=== PATIENT | male | born 1965 | race Native Hawaiian/Other Pacific Islander ===

== ENCOUNTER 2018-10-31 14:45 | Observation (INO) | payer OTHER ==
[2018-10-31 14:51] VITALS: BMI 19.6
[2018-10-31 15:08] VITALS: RESP 18
--- NOTE | 2018-10-31 15:22 | ED PDOC ---
Arrival/HPI - General Chief Complaint: Shortness Of Breath Time Seen by Provider: 10/31/18 14:46 Historian: Patient - History of Present Illness Narrative History of Present Illness (Text): 10/31/18 15:13 53 year old male, with past medical history of diabetes, was referred to the ED from Dr. Chavez's office for evaluation epigastric pain and fullness. Patient presented to Dr. Chavez today for evaluation and had normal ekg. He was sent to the ED for blood work. He reports that for the past month he has been experiencing episodes of epigastric pain with a gassy feeling and feeling of fullness in his abdomen. Reports that this weekend he began having dyspnea on exertion and worsening epigastric pain. He reports he was also having dizziness with exertion. He is scheduled for EGD with Dr. Herrera. Patient states he had a cardiac stress test done in 2016, which was normal. Denies family history of sudden cardiac . Denies family hx of early cardiac . PMD: Dr. Chavez 10/31/18 17:21 Time/Duration: > month Symptom Onset: Gradual Symptom Course: Unchanged Activities at Onset: Light Context: Other (Referred by Dr. Chavez) Past Medical History - Provider Review Nursing Documentation Reviewed: Yes - Infectious Disease Hx of Infectious Diseases: None - Endocrine/Metabolic Hx Diabetes Mellitus Type 2: Yes - Psychiatric Hx Substance Use: No Family/Social History - Physician Review Nursing Documentation Reviewed: Yes Family/Social History: No Known Family HX Smoking Status: Never Smoked Hx Alcohol Use: No Hx Substance Use: No Allergies/Home Meds Allergies/Adverse Reactions: Allergies aspirin Allergy (Verified 10/31/18 14:51) RASH Home Medications: Home Meds Medication Instructions Recorded Confirmed metFORMIN [glucOPHAGE] 500 mg PO DAILY 10/31/18 10/31/18 Review of Systems - Review of Systems Constitutional: absent: Fevers Respiratory: SOB. absent: Cough Cardiovascular: Chest Pain, CUADRA. absent: Edema, Calf Pain Gastrointestinal: absent: Abdominal Pain, Constipation, Diarrhea, Nausea, Vomiting Genitourinary Male: absent: Dysuria, Hematuria Musculoskeletal: absent: Back Pain, Neck Pain Skin: absent: Rash Neurological: Dizziness. absent: Headache, Focal Weakness Endocrine: absent: Diaphoresis Psychiatric: absent: Anxiety Physical Exam Vital Signs Reviewed: Yes Vital Signs Temp Pulse Resp BP Pulse Ox 10/31/18 15:07 98.5 F 71 18 133/71 100 Temperature: Afebrile Blood Pressure: Normal Pulse: Regular Respiratory Rate: Normal Appearance: Positive for: Well-Appearing, Non-Toxic, Comfortable Pain Distress: None Mental Status: Positive for: Alert and Oriented X 3 - Systems Exam Head: Present: Atraumatic, Normocephalic Pupils: Present: PERRL Extroacular Muscles: Present: EOMI Conjunctiva: Present: Normal Neck: Present: Normal Range of Motion Respiratory/Chest: Present: Clear to Auscultation, Good Air Exchange. No: Respiratory Distress, Accessory Muscle Use Cardiovascular: Present: Regular Rate and Rhythm, Normal S1, S2. No: Murmurs Abdomen: No: Tenderness, Distention, Peritoneal Signs Back: Present: Normal Inspection Upper Extremity: Present: Normal Inspection. No: Cyanosis, Edema Lower Extremity: Present: Normal Inspection. No: Edema Neurological: Present: GCS=15, Speech Normal Skin: Present: Warm, Dry, Normal Color. No: Rashes Psychiatric: Present: Alert, Oriented x 3, Normal Insight, Normal Concentration Medical Decision Making ED Course and Treatment: 10/31/18 15:00 Impression: 53 year old male presents to the ED for evaluation of shortness of breath and generalized fatigue. Plan: -- EKG -- Labs -- CXR -- Reassess and disposition Prior Visits: Notes and results from previous visits were reviewed. Progress Notes: 10/31/18 16:22 EKG shows NSR at 68bpm with normal intervals and no ST changes. Cxray negative. Heart score:3. On reevaluation patient began complaining of palpitations and chest pain. Patient not given aspirin due to allergy. Accepted by Dr. Hope for observation. - RAD Interpretation Radiology Orders: 10/31/18 15:00 CHEST PORTABLE [RAD] Stat - Scribe Statement The provider has reviewed the documentation as recorded by the Scribe Hakeem Meza. All medical record entries made by the Scribe were at my direction and personally dictated by me. I have reviewed the chart and agree that the record accurately reflects my personal performance of the history, physical exam, medical decision making, and the department course for this patient. I have also personally directed, reviewed, and agree with the discharge instructions and disposition. Disposition/Present on Arrival - Present on Arrival Any Indicators Present on Arrival: No History of DVT/PE: No History of Uncontrolled Diabetes: No Urinary Catheter: No History of Decub. Ulcer: No History Surgical Site Infection Following: None - Disposition Have Diagnosis and Disposition been Completed?: Yes Diagnosis: Fatigue, Epigastric pain Disposition: HOSPITALIZED Disposition Time: 16:31 Patient Plan: Observation Patient Problems: Current Active Problems Problem Status Onset Fatigue Acute Epigastric pain Acute Condition: FAIR Additional Instructions: Follow-up with Dr. Veras within 2 days. Follow-up with Dr. Herrera as scheduled. Return to ED if condition worsens. Referrals: Koby Chavez MD [Primary Care Provider] - Follow up with primary Omid Piper MD [Staff Provider] - Follow up with primary Stephen Herrera MD [Staff Provider] - Follow up with primary Forms: [employer] ([employer])
[2018-10-31 15:50] LABS: BASO # 0.01 K/mm3 (0.0-2.0); BASO % 0.2 % (0.0-3.0); EOS % 0.3 % (1.5-5.0); HEMOGLOBIN 14.3 g/dL (14.0-18.0); LYMPH # 1.3 (1.2-3.4); LYMPH % 20.2 % (22.0-35.0); MEAN CELL VOLUME 82.9 fl (80.0-105.0); MEAN CORPUSCULAR HEMOGLOBIN 29.9 pg (25.0-35.0); MEAN PLATELET VOLUME 8.6 fl (7.0-11.0); MONO # 0.4 (0.1-0.6); MONO % 6.8 % (1.0-6.0); RBC 4.79 10^6/uL (3.5-6.1); RED CELL DISTRIBUTION WIDTH 12.3 % (11.5-14.5); WHITE BLOOD COUNT 6.3 10^3/uL (4.5-11.0)
[2018-10-31 16:06] LABS: ALB/GLOB RATIO 1.3 (1.1-1.8); ALBUMIN 4.4 g/dL (3.0-4.8); ALT/SGPT 13 U/L (7-56); AST/SGOT 30 U/L (17-59); BLOOD UREA NITROGEN 13 mg/dL (7-21); CALCIUM 9.3 mg/dL (8.4-10.5); GFR NON-AFRICAN AMERICAN > 60; LIPASE 89 U/L (23-300)
[2018-10-31 16:18] LABS: TROPONIN I < 0.01 ng/mL
[2018-10-31 16:19] LABS: B-TYPE NATRIURETIC PEPTIDE 46.5 pg/mL (0-450)
--- NOTE | 2018-10-31 16:30 | RAD ---
Date of service: 10/31/2018 HISTORY: chest pain COMPARISON: No prior. FINDINGS: LUNGS: No active pulmonary disease. PLEURA: No significant pleural effusion identified, no pneumothorax apparent. CARDIOVASCULAR: No aortic atherosclerotic calcification present. Normal cardiac size. No pulmonary vascular congestion. OSSEOUS STRUCTURES: No significant abnormalities. VISUALIZED UPPER ABDOMEN: Normal. OTHER FINDINGS: None. IMPRESSION: No active disease.
[2018-10-31] MEDS ORDERED: Alum-Mag Hydrox-Simethicone Susp (30 mL) PO STA (17:21)
--- NOTE | 2018-10-31 22:39 | CARD ---
APPROVED REPORT Date of service: 10/31/2018 EKG Measurement Heart [id number] <Conclusion> Poor data quality, interpretation may be adversely affected Normal sinus rhythm Normal ECG
[2018-10-31] MEDS: Insulin Reg-LOW-Coverage SC SCH (22:43)
[2018-11-01 05:50] VITALS: BP 123/75; TEMP 98.2; O2SAT 98
[2018-11-01] MEDS: Insulin Reg-LOW-Coverage SC SCH ×2 (08:30→12:13)
[2018-11-01 09:16] LABS: EOS % 0.7 % (1.5-5.0); HEMOGLOBIN 14.2 g/dL (14.0-18.0); LYMPH # 1.6 (1.2-3.4); MEAN CORPUSCULAR HEMOGLOBIN 29.2 pg (25.0-35.0); MEAN CORPUSCULAR HGB CONC 35.1 g/dl (31.0-37.0); MEAN PLATELET VOLUME 8.8 fl (7.0-11.0); MONO # 0.4 (0.1-0.6); RBC 4.87 10^6/uL (3.5-6.1); RED CELL DISTRIBUTION WIDTH 12.3 % (11.5-14.5)
[2018-11-01 09:29] LABS: ALB/GLOB RATIO 1.2 (1.1-1.8); ALBUMIN 4.2 g/dL (3.0-4.8); ALT/SGPT 16 U/L (7-56); AST/SGOT 28 U/L (17-59); BLOOD UREA NITROGEN 11 mg/dL (7-21); CALCIUM 9.4 mg/dL (8.4-10.5); GFR NON-AFRICAN AMERICAN > 60
--- NOTE | 2018-11-01 10:06 | CP.PCM.HP ---
<Barry Tello - Last Filed: 11/01/18 10:42> History of Present Illness - History of Present Illness History of Present Illness: Barry Tello- Internal Medicine Resident- H&P Note/Discharge Note on Behalf of Dr. Medeiros Subjective: CC: Abdominal pain/Chest Pain HPI: Patient is a 53 year old male with a past medical history of DM who was admitted for evaluation and treatment of abdominal pain and chest pain. States the abdominal pain started months ago without a specific provoking event. Pain is characterized as being a dull aching sensation and remains in the epigatric region. Admits to abdominal fullness and belching after eating. Denies associated nausea and vomiting. States chest pain/pressure occurred with belching. Admits to associated SOB with exertion. Abdominal pain, chest pain, and exertional SOB have resolved since onset. Admits to following up with Dr. Piper and Dr. Herrera on an outpatient basis. Denies acute overnight events. Offers no new complaints at this time. Denies headache, dizziness, fevers, chills, palpitations, nausea, vomiting, diarrhea, constipation, and urinary symptoms. 12 Point ROS Negative Except as indicated in the HPI PMH: DM PSHx: none FMHx: sister- pancreatic cancer SHx: social alcohol use, denies tobacco use and illicit drug use Allergies: aspirin Physical Examination: - Constitutional Appears: Non-toxic, No Acute Distress - Head Exam Head Exam: ATRAUMATIC, NORMOCEPHALIC - Eye Exam Eye Exam: EOMI, Normal appearance, PERRL - ENT Exam ENT Exam: Mucous Membranes Moist - Respiratory Exam Respiratory Exam: Clear to Auscultation Bilateral, NORMAL BREATHING PATTERN - Cardiovascular Exam Cardiovascular Exam: REGULAR RHYTHM, +S1, +S2. absent: Systolic Murmur - GI/Abdominal Exam GI & Abdominal Exam: Normal Bowel Sounds, Soft. absent: Distended, Firm, Guarding, Rebound, Rigid, Tenderness - Neurological Exam Neurological exam: Alert, CN II-XII Intact, Oriented x3 - Psychiatric Exam Psychiatric exam: Normal Affect, Normal Mood - Skin Skin Exam: Dry, Intact, Warm Assessment and Plan: Chest Pain- ACS ruled out Abdominal Pain DM EKG revealed NSR with no defining ST- T wave changes. Troponins are less than 0.01 x 3. Cardiology consulted for chest pain- appreciate recs. GI consulted for epigastric pain- appreciate recs. Continue home ISS and fingersticks ACHS for DM. Will continue home metformin upon discharge. 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 Patient case reviewed with and plan approved by attending physician, Dr. Wendie mendez. Present on Admission - Present on Admission Any Indicators Present on Admission: No Past Patient History - Infectious Disease Hx of Infectious Diseases: None - Past Social History Smoking Status: Never Smoked - ENDOCRINE/METABOLIC Hx Diabetes Mellitus Type 2: Yes - MUSCULOSKELETAL/RHEUMATOLOGICAL Hx Falls: No - PSYCHIATRIC Hx Substance Use: No Meds Allergies/Adverse Reactions: Allergies Allergy/AdvReac Type Severity Reaction Status Date / Time aspirin Allergy RASH Verified 10/31/18 14:51 Results - Vital Signs Recent Vital Signs: Last Vital Signs Temp 98.2 F 11/01/18 05:47 Pulse 63 11/01/18 05:47 Resp 18 11/01/18 05:47 BP 123/75 11/01/18 05:47 Pulse Ox 98 11/01/18 05:47 - Labs Result Diagrams: 11/01/18 09:00 11/01/18 09:00 Labs: Laboratory Results - last 24 hr 10/31/18 10/31/18 10/31/18 15:30 15:30 15:30 WBC 6.3 RBC 4.79 Hgb 14.3 Hct 39.7 L MCV 82.9 MCH 29.9 MCHC 36.0 RDW 12.3 Plt Count 326 MPV 8.6 Neut % (Auto) 72.5 H Lymph % (Auto) 20.2 L Gordon % (Auto) 6.8 H Eos % (Auto) 0.3 L Baso % (Auto) 0.2 Lymph # (Auto) 1.3 Gordon # (Auto) 0.4 Eos # (Auto) 0.0 Baso # (Auto) 0.01 Absolute Neuts (auto) 4.57 D-Dimer, Quantitative < 200 Sodium 135 Potassium 3.9 Chloride 97 L Carbon Dioxide 26 Anion Gap 16 BUN 13 Creatinine 0.7 L Est GFR ( Amer) > 60 Est GFR (Non-Af Amer) > 60 Random Glucose 140 H Calcium 9.3 Total Bilirubin 0.6 AST 30 ALT 13 Alkaline Phosphatase 54 Troponin I < 0.01 NT-Pro-B Natriuret Pep 46.5 Total Protein 7.9 Albumin 4.4 Globulin 3.5 Albumin/Globulin Ratio 1.3 Lipase 89 10/31/18 11/01/18 11/01/18 20:50 06:00 09:00 WBC 6.0 RBC 4.87 Hgb 14.2 Hct 40.4 L MCV 83.0 MCH 29.2 MCHC 35.1 RDW 12.3 Plt Count 330 MPV 8.8 Neut % (Auto) 67.3 Lymph % (Auto) 26.0 Gordon % (Auto) 6.0 Eos % (Auto) 0.7 L Baso % (Auto) 0.0 Lymph # (Auto) 1.6 Gordon # (Auto) 0.4 Eos # (Auto) 0.0 Baso # (Auto) 0.00 Absolute Neuts (auto) 4.05 D-Dimer, Quantitative Sodium Potassium Chloride Carbon Dioxide Anion Gap BUN Creatinine Est GFR ( Amer) Est GFR (Non-Af Amer) Random Glucose Calcium Total Bilirubin AST ALT Alkaline Phosphatase Troponin I < 0.01 < 0.01 NT-Pro-B Natriuret Pep Total Protein Albumin Globulin Albumin/Globulin Ratio Lipase 11/01/18 09:00 WBC RBC Hgb Hct MCV MCH MCHC RDW Plt Count MPV Neut % (Auto) Lymph % (Auto) Gordon % (Auto) Eos % (Auto) Baso % (Auto) Lymph # (Auto) Gordon # (Auto) Eos # (Auto) Baso # (Auto) Absolute Neuts (auto) D-Dimer, Quantitative Sodium 135 Potassium 4.0 Chloride 99 Carbon Dioxide 25 Anion Gap 16 BUN 11 Creatinine 0.7 L Est GFR ( Amer) > 60 Est GFR (Non-Af Amer) > 60 Random Glucose 154 H Calcium 9.4 Total Bilirubin 0.8 AST 28 ALT 16 Alkaline Phosphatase 60 Troponin I NT-Pro-B Natriuret Pep Total Protein 7.5 Albumin 4.2 Globulin 3.4 Albumin/Globulin Ratio 1.2 Lipase <Frandy Medeiros - Last Filed: 11/01/18 17:33> Results - Vital Signs Recent Vital Signs: Last Vital Signs Temp 98.2 F 11/01/18 05:47 Pulse 86 11/01/18 10:00 Resp 18 11/01/18 05:47 BP 123/75 11/01/18 05:47 Pulse Ox 98 11/01/18 05:47 - Labs Result Diagrams: 11/01/18 09:00 11/01/18 09:00 Labs: Laboratory Results - last 24 hr 10/31/18 11/01/18 11/01/18 20:50 06:00 09:00 WBC 6.0 RBC 4.87 Hgb 14.2 Hct 40.4 L MCV 83.0 MCH 29.2 MCHC 35.1 RDW 12.3 Plt Count 330 MPV 8.8 Neut % (Auto) 67.3 Lymph % (Auto) 26.0 Gordon % (Auto) 6.0 Eos % (Auto) 0.7 L Baso % (Auto) 0.0 Lymph # (Auto) 1.6 Gordon # (Auto) 0.4 Eos # (Auto) 0.0 Baso # (Auto) 0.00 Absolute Neuts (auto) 4.05 Sodium Potassium Chloride Carbon Dioxide Anion Gap BUN Creatinine Est GFR ( Amer) Est GFR (Non-Af Amer) Random Glucose Calcium Total Bilirubin AST ALT Alkaline Phosphatase Troponin I < 0.01 < 0.01 Total Protein Albumin Globulin Albumin/Globulin Ratio 11/01/18 09:00 WBC RBC Hgb Hct MCV MCH MCHC RDW Plt Count MPV Neut % (Auto) Lymph % (Auto) Gordon % (Auto) Eos % (Auto) Baso % (Auto) Lymph # (Auto) Gordon # (Auto) Eos # (Auto) Baso # (Auto) Absolute Neuts (auto) Sodium 135 Potassium 4.0 Chloride 99 Carbon Dioxide 25 Anion Gap 16 BUN 11 Creatinine 0.7 L Est GFR ( Amer) > 60 Est GFR (Non-Af Amer) > 60 Random Glucose 154 H Calcium 9.4 Total Bilirubin 0.8 AST 28 ALT 16 Alkaline Phosphatase 60 Troponin I Total Protein 7.5 Albumin 4.2 Globulin 3.4 Albumin/Globulin Ratio 1.2 Assessment & Plan - Assessment and Plan (Free Text) Assessment: Pt seen and examined by me. I have reviewed the note of the medical research assistant and I agree with it. I have discussed the assessment and plan with the resident. I have reviewed the medications and the last labs.
[2018-11-01 11:19] VITALS: PULSE 86
--- NOTE | 2018-11-01 14:01 | CON ---
DATE: 11/01/2018 REQUESTING PHYSICIAN: Dr. Medeiros. REASON FOR CONSULTATION: Chest and epigastric pain. HISTORY: This is a 53-year-old man known to us from prior evaluation with a history of diabetes, who was sent to the emergency room by Dr. Chavez yesterday for evaluation of chest and epigastric discomfort. He states that he has had worsening symptoms lately; his symptoms can occur at rest, but often occur with exertion. He also has associated dyspnea. He was evaluated with a stress test in 2017, which was unremarkable. He has seen Dr. Herrera for a GI evaluation. Initial electrocardiogram and blood work have been unremarkable. He has a difficult time defining further characteristics of his symptomatology. His cardiac risk factors include diabetes, which he states is fairly well controlled; he is not hypertensive or hyperlipidemic. There is no family history of premature heart disease. He does not smoke. PAST MEDICAL HISTORY: His past history is notable mainly for the problems mentioned above. HOME MEDICATIONS: Medications at home include Glucophage 500 mg b.i.d. SOCIAL HISTORY: He does not smoke or drink. He states that he is fairly active. FAMILY HISTORY: Unremarkable for premature heart disease. REVIEW OF SYSTEMS: Ten-point review of systems is otherwise unremarkable. ALLERGIES: HE REPORTEDLY HAD A RASH WITH ASPIRIN USE IN THE PAST. PHYSICAL EXAMINATION: GENERAL: He is a thin, middle-aged man. VITAL SIGNS: His blood pressure is 122/76 with a pulse of 62 and sinus, respirations are 14. He is afebrile. HEENT: Normocephalic, atraumatic. NECK: Supple. No JVD noted. CHEST: Clear to auscultation and percussion. HEART: PMI in normal position. Soft systolic murmur is present in the lower left sternal border. ABDOMEN: Soft and nontender with normoactive bowel sounds. EXTREMITIES: There are no clubbing, cyanosis, or edema. SKIN: Warm and dry. PSYCHIATRIC: Normal mood and affect. NEUROLOGIC: Alert and oriented x3. No gross motor or sensory deficits notable. DIAGNOSTIC DATA: Potassium is 3.9. BUN and creatinine are 13 and 0.7, glucose is 140. White count is 6.3, hemoglobin and hematocrit 14.3 and 39.7 with a platelet count of 326,000. Three sets of cardiac enzymes were negative. Chest x-ray reveals normal cardiac silhouette with clear lung alan. Electrocardiogram reveals sinus rhythm with nonspecific ST-T abnormalities. IMPRESSION: Chest and epigastric discomfort, etiology not totally clear. Some aspects of his pain and other symptoms could be suggestive of a cardiac ischemia, although GI cause is certainly a possibility as well. Given his significant risk factor of diabetes and his age, a followup stress test at this time would be appropriate. This will be arranged as an outpatient. In the interim, continued risk factor control is advised. Consideration may be given to the addition of statin therapy, given the presence of diabetes. If he has any worsening symptoms, he was encouraged to return for further evaluation. Outpatient followup will be arranged. Kaiser Basilio MD
--- NOTE | 2018-11-01 22:50 | HP ---
DATE OF EXAM: 11/01/2018 HISTORY OF PRESENT ILLNESS: The patient was seen and examined, I do agree with the note of the medical bill processor. I was involved in the plan of care. The patient had come into the hospital because of epigastric pain, it was atypical. He denied any nausea. He had troponin x3, that were negative. The patient was seen by Dr. Basilio from Cardiology. He had reviewed the patient's EKG and there was nonspecific ST-T changes. The patient will need a followup stress test. He was advised to come back to the hospital if his symptoms worsen. He did not have any symptoms this morning. He is suppose to see Dr. Sharon cooney GI for an endoscopy. He does have diabetes type 2. PHYSICAL EXAMINATION: GENERAL: The patient lying in bed, uncomfortable, and in no acute distress. HEENT: Atraumatic and normocephalic. Anicteric sclerae. Moist mucosa. [place] conjunctivae. No oral lesions. NECK: No JVD, anterior and posterior adenopathy, thyromegaly, or bruits. CARDIOVASCULAR: S1 and S2 regular. No murmur, rubs, or gallop. LUNGS: Clear to auscultation bilaterally. No wheezes, rales, or rhonchi. ABDOMEN: Bowel sounds are positive. Soft, nontender and nondistended. No hepatosplenomegaly. No rebound and no guarding. EXTREMITIES: No cyanosis, clubbing, or edema. NEUROLOGIC: No facial asymmetry. Tongue is midline. No vulva deviation. Power is 5/5 upper extremity and lower extremity. Sensation intact in upper extremity and lower extremity. PSYCHIATRIC: She is awake, alert and oriented x3. No anxiety or depression. She has normal affect. GENITOURINARY: No CVA tenderness. VASCULAR: 2+ pulses in the carotid pulses and pedal pulses. SKIN: No erythema or nodules SPINE: Shows normal curvature. IMPRESSION AND PLAN: The patient has chest pain atypical and epigastric pain. His EKG did not show any significant abnormalities. He is going to be discharged home today to followup as an outpatient with his radar scientist, Dr. Basilio for stress test. He already has a endoscopy that has been scheduled by Dr. Herrera. I did speak to Dr. Wells who is covering Dr. Herrera. Frandy Medeiros MD [facility] # [id number]
--- NOTE | 2018-11-02 01:56 | CON ---
DATE: 11/01/2018HISTORY OF PRESENT ILLNESS: This is a 53-year-old patient with past medical history of diabetes mellitus, admitted with complaints of epigastric discomfort and fullness. The patient has been seen by Dr. Stephen Herrera and is due to have an endoscopy next month. The patient had stress test done, which was negative in the past. PAST MEDICAL HISTORY: Significant for diabetes mellitus. PAST SURGICAL HISTORY: Denies any surgical history. FAMILY HISTORY: Sister with pancreatic cancer. SOCIAL HISTORY: Alcohol socially. No smoking. ALLERGIES: ALLERGIC TO ASPIRIN. REVIEW OF SYSTEMS: Positive as above. Other systems reviewed. PHYSICAL EXAMINATION: GENERAL: The patient is lying on bed not in acute distress. VITAL SIGNS: Pulse 63, temperature 98.2, blood pressure 123/75, respirations 18, and O2 saturation 98%. HEENT: Atraumatic and anicteric. NECK: Supple. HEART: S1 and S2 heard. LUNGS: Bilateral air entry present. ABDOMEN: Soft. No mass palpable. No tenderness. LABORATORY DATA: Hemoglobin 14.2, hematocrit 40.4, WBC 6, and platelet . Chemistry shows BUN 11 and creatinine 0.7. IMPRESSION AND PLAN: This is a 53-year-old patient with history of diabetes mellitus, admitted with epigastric discomfort and dyspeptic symptoms and fullness of the stomach. The patient has been scheduled for an outpatient EGD by Dr. Stephen Herrera. The patient is doing much better . The patient has been on metformin. One of the differential diagnosis including gastroesophageal reflux disease and peptic ulcer disease. The patient was evaluated by the Cardiology and there was only nonspecific ST changes noted. The patient is being cleared for discharge. The patient need to be followed up as an outpatient with mechanical service specialist and follow up with Dr. Herrera as outpatient for the endoscopic evaluation. The patient was advised to continue the PPI. Thank you very much for allowing us to participate in the care of the patient. Luther Wells MD
== END 2018-11-01 14:15 | disposition home or self-care (01) ==
LOC: ED 14:45 → ERH 18:00 → 2RNO 18:34
PROVIDERS: ADMIT Internal Medicine Nephrology; ATTEND Internal Medicine Nephrology
DX: R07.89 Other chest pain (principal); R10.13 Epigastric pain; E11.9 Type 2 diabetes mellitus without complications; Z79.84 Long term (current) use of oral hypoglycemic drugs; Z80.0 Family history of malignant neoplasm of digestive organs
CPT/HCPCS: 36415; 71045; 80053; 83690; 83880; 84484; 85025; 85378; 93005; 96374; 96376; 99284; G0378